=== PATIENT | female | born 1950 | race Caucasian/White ===

== ENCOUNTER → 2021-05-03 | Outpatient (CLI) | payer MEDICARE, OTHER | LOC: CARD 13:07 | PROVIDERS: ATTEND Internal Medicine Cardiovascular Disease | DX: I08.0 Rheumatic disorders of both mitral and aortic valves (principal); I11.9 Hypertensive heart disease without heart failure; I25.10 Atherosclerotic heart disease of native coronary artery without angina pectoris; Z95.2 Presence of prosthetic heart valve | CPT/HCPCS: 93306 ==

== ENCOUNTER → 2022-05-15 | Outpatient (CLI) | payer MEDICARE, OTHER | LOC: CARD 14:00 | PROVIDERS: ATTEND Internal Medicine Cardiovascular Disease | DX: I34.0 Nonrheumatic mitral (valve) insufficiency (principal); I35.1 Nonrheumatic aortic (valve) insufficiency; I11.9 Hypertensive heart disease without heart failure | CPT/HCPCS: 93306 ==

== ENCOUNTER 2022-12-05 10:18 | Day surgery (SDC) | payer MEDICARE, OTHER ==
[~2022-12-05] VITALS: Ht 157.5 cm; Wt 93.2 kg
[2022-12-05] VITALS (13 sets, daily range): BP systolic 140–164; BP diastolic 62–110
[2022-12-05] MEDS ORDERED: NS IV 1000 ML 1,000 ML IV SCH ×3 (10:45→14:00)
[2022-12-05 10:48] LABS: BILIRUBIN,URINE NEGATIVE (NEGATIVE); CLARITY,URINE CLEAR; COLOR,URINE YELLOW; GLUCOSE, URINE (UA) NEGATIVE (NEGATIVE); KETONES,URINE NEGATIVE (NEGATIVE); LEUKOCYTE ESTERASE ,URINE TRACE (NEGATIVE); NITRITE,URINE NEGATIVE (NEGATIVE); PROTEIN,URINE 2+ (NEGATIVE)
[2022-12-05 10:49] LABS: HEMATOCRIT 38 % (35-52); HEMOGLOBIN 11.5 g/dL (11.5-16.0); MEAN CORPUSCULAR HEMOGLOBIN 25 pg (25-34); MEAN CORPUSCULAR HGB CONC 31 g/dL (32-36); MEAN CORPUSCULAR VOLUME 81 fL (80-99); MEAN PLATELET VOLUME 10.4 fL (9.0-12.2); PLATELET COUNT 299 10^3/uL (130-400); WHITE BLOOD COUNT 8.6 10^3/uL (4.3-11.0)
[2022-12-05 10:53] LABS: INR 1.2 (0.8-1.4); PROTHROMBIN TIME PATIENT 15.1 SEC (12.2-14.7)
--- NOTE | 2022-12-05 10:56 | Diagnostic Imaging Report ---
INDICATION: ABNORMAL STRESS TEST. PRE-HEART CATHETERIZATION. TECHNIQUE: Single view chest 10:36 AM. CORRELATION STUDY: None FINDINGS: Heart size upper limits of normal. Mild calcification at the aortic arch. Pulmonary vasculature normal. The lungs are clear with no consolidating infiltrate. There is no significant effusion or pneumothorax. IMPRESSION: 1. Negative appearing single view chest. Dictated by: Dictated on workstation # [id number]
[2022-12-05] MEDS ORDERED: ZOLP5TAB7 PO (10:57)
[2022-12-05] MEDS ORDERED: IBAN150T21 PO (10:57)
[2022-12-05] MEDS ORDERED: FURO20TA4 PO (10:57)
[2022-12-05] MEDS ORDERED: CARV12.53 PO (10:57)
[2022-12-05] MEDS ORDERED: RIVA20TA PO (10:57)
[2022-12-05] MEDS ORDERED: CHOL4PAC16 PO (10:57)
[2022-12-05] MEDS ORDERED: LISI2.5T13 PO (10:57)
[2022-12-05] MEDS ORDERED: OMEP40CA6 PO (10:57)
[2022-12-05 11:02] LABS: ALBUMIN 4.1 GM/DL (3.2-4.5); BILIRUBIN,TOTAL 0.4 MG/DL (0.1-1.0); CALCIUM 9.6 MG/DL (8.5-10.1); CREATININE SERUM 1.03 MG/DL (0.60-1.30); TOTAL PROTEIN 7.5 GM/DL (6.4-8.2)
[2022-12-05 11:17] LABS: BACTERIA,URINE TRACE /HPF; RBC,URINE 0-2 /HPF; WBC,URINE 0-2 /HPF
[2022-12-05] MEDS ORDERED: LIDOCAINE 1% INJ 20 ML VIAL ONE (12:38)
[2022-12-05] MEDS ORDERED: HEParin 1000 UNIT/ML (10ML VIAL) FOR BOLUS ONE (12:38)
[2022-12-05] MEDS ORDERED: HEParin (CATH LAB) 2,000 ML IV ONE (12:38)
[2022-12-05] MEDS ORDERED: NS IV 1000 ML 1,000 ML ONE (12:38)
[2022-12-05] MEDS ORDERED: NITRO DRIP 25000 MCG/D5W 250 ML IV ONE (12:50)
[2022-12-05] MEDS ORDERED: fentaNYL INJ 100 MCG/2 ML AMP ONE (12:50)
[2022-12-05] MEDS ORDERED: MIDAZOLAM 5 MG/5 ML (VERSED) VIAL ONE (12:50)
[2022-12-05] MEDS ORDERED: VERAPAMIL 5 MG/2 ML (CALAN) VIAL IV ONE (12:50)
--- NOTE | 2022-12-05 13:13 | Cardiac Procedure Note-CS/ASA ---
Pre-Procedure Note Pre-Op Procedure Note Date of Available H&P: November 08, 2022 Date H&P Reviewed: Dec 05, 2022 Time H&P Reviewed: 13:13 History & Physical: H&P Reviewed, Patient Examed, No changes noted Pre-Operative Diagnosis: CAD Moderate Sedation PreProcedure Time 13:13 ASA Score 3 Airway Lungs Heart ASA score ASA 1: a normal healthy patient ASA 2: a patient with a mild systemic disease (mid diabetes, controlled hypertension, obesity ASA 3: a patient with a severe systemic disease that limits activity (angina, COPD, prior Myocardial infarction) ASA 4: a patient with an incapacitating disease that is a constant threat to life (CHF, renal failure) ASA 5: a moribund patient not expected to survive 24 hrs. (ruptured aneurysm) ASA 6: a declared brain- patient whose organs are being harvested. For emergent operations, add the letter E after the classification Mallampati Classification Grade 3 Sedation Plan Analgesia, Amnesia, Plan communicated to team members, Discussed options with patient/fam, Discussed risks with patient/fam The patient is an appropriate candidate to undergo the planned procedure, sedation, and anesthesia. The patient immediately re-assessed prior to indication. HAROON CRUZ MD Dec 05, 2022 13:13
--- NOTE | 2022-12-05 13:58 | Discharge Inst-Post CATH ---
Discharge Inst-CATH/EP Problems Reviewed?: Yes Post Cardiac Cath/EP D/C Inst Follow Up/Plan Appointment with Dr. De Leon's office in 2 to 4 weeks <b>CARDIAC CATH/EP PROCEDURE DISCHARGE INSTRUCTIONS</b> ACTIVITY * Go Home directly and rest. * Limit activity of the leg (or wrist if it was used) for 7 days including aer obics, swimming, jogging, bicycling, etc. * Restrict stair-climbing for 7 days if possible, if not, climb up with your non-cath leg, then bring together on the same step. * Avoid lifting, pushing, pulling or excessive movement of the affected extremi ty for 7 days. * Customary sexual activity may be resumed after 2 days-use caution not to use a position that strains or causes pain to the affected extremity. * No driving for 24 hours. * NO SMOKING. * Avoid straining for bowel movements for 7 days. * Gentle walking on level ground is allowed. * Returning to work will depend on the type of procedure and the results. Your doctor will discuss this with you. CALL YOUR DOCTOR FOR ANY OF THE FOLLOWING: *If bleeding from the puncture site occurs- Apply gentle pressure to site with clean cloth and call your doctor or EMS. * If a knot or lump forms under the skin, increases in size, or causes pain. * If bruising appears to be worsening or moving further down your leg instead of disappearing. * Temperature above 101 F. CARE OF YOUR GROIN INCISION; * Bruising or purple discoloration of the skin near the puncture site is common. * You may shower only, no bathtub bathing for 5 days. Be careful to avoid slipping as your leg may feel stiff. * If a closure device was used on your femoral artery, please see the attached guide regarding care of the device and your leg. * Leave dressing on FOR 24 hours. CARE OF YOUR WRIST INCISION; * Bruising or purple discoloration of the skin near the puncture site is common. * You may shower. * DO NOT submerge wrist. * Leave dressing on FOR 24 hours. HAROON DE LEON MD Dec 05, 2022 13:58
[2022-12-05] MEDS ORDERED: PATIENT MAY USE OWN MEDS, ALL PO SCH (14:00)
--- NOTE | 2022-12-05 14:03 | Cardiac Cath Report ---
Cardiac Cath Report Physician (s)/Wood Cutter (s) Physician HAROON CRUZ MD Pre-Procedure Diagnosis Pre-Procedure Diagnosis: CAD Post-Procedure Note Procedure Start Date: Dec 05, 2022 Name of Procedure: Coronary angiogram Aortic root angiogram Findings/Procedure Note PROCEDURE NOTE: 72-year-old lady with history of TAVR, underwent stress test today and had significant abnormality. Cardiac catheterization was advised. After explaining the procedure to the patient, all pros and cons were explained, all questions were answered. The patient signed the consent and then she was placed in the cardiac catheterization laboratory. Groin was prepped in SL fashion local anesthesia was used. Sheath placed in the right radial artery, I was unable to advance the catheter beyond the brachial artery probably due to to spasm or anomaly in the brachial artery subsequently I aborted the radial attempt and proceeded with the groin attempt. Sheath was placed in the right femoral artery. Satnam' right and left catheter were used to access the coronary system. Pigtail was used and advanced to the aortic root and aortic root angiogram was done Did not cross the prosthetic aortic valve At the end of the procedure the sheath was removed. 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 There is slightly dilatation of the ascending thoracic aorta. No dissection. 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 DISCUSSION AND RECOMMENDATION: Continue maximizing medical therapy. Abnormal stress test is probably due to cardiomyopathy and atrial fibrillation Anesthesia Type: Conscious Sedation Estimated blood loss (mL): 20 ml Contrast Amount: 40 ml Post-Procedure Diagnosis Post-operative diagnosis: Atrial fibrillation Aortic valve replacement Coronary artery disease Congestive heart failure, chronic compensated left ventricular systolic dysfunction, nonischemic cardiomyopathy HAROON CRUZ MD Dec 05, 2022 14:03
== END 2022-12-05 18:50 ==
LOC: CATH 10:18 → SDC 14:04 → CATH 18:50
PROVIDERS: ATTEND Internal Medicine Cardiovascular Disease
DX: I25.10 Atherosclerotic heart disease of native coronary artery without angina pectoris (principal); I48.0 Paroxysmal atrial fibrillation; E78.2 Mixed hyperlipidemia; I50.22 Chronic systolic (congestive) heart failure; I42.8 Other cardiomyopathies; I65.23 Occlusion and stenosis of bilateral carotid arteries; I71.21 Aneurysm of the ascending aorta, without rupture; I48.11 Longstanding persistent atrial fibrillation; Z79.01 Long term (current) use of anticoagulants; Z95.2 Presence of prosthetic heart valve; Z79.899 Other long term (current) drug therapy; Z90.89 Acquired absence of other organs
CPT/HCPCS: 71045; 80053; 80061; 81000; 85027; 85610; 85730; 93454; 93567; C1760; C1894 ×2; C8930; 36415